=== PATIENT | female | born 1965 | race Caucasian/White ===

== ENCOUNTER → 2017-10-08 | Outpatient (CLI) | payer OTHER | LOC: CFH 09:04 | PROVIDERS: ATTEND Family Medicine | DX: Z12.31 Encounter for screening mammogram for malignant neoplasm of breast (principal) | CPT/HCPCS: 77067 ==

== ENCOUNTER 2020-10-15 14:37 | Inpatient (IN) | payer OTHER ==
[~2020-10-15] VITALS: Ht 160 cm; Wt 73.3 kg
[2020-10-15] MEDS ORDERED: METOCLOPRAMIDE 5 MG/ML, 2ML ONE (15:24)
[2020-10-15] MEDS ORDERED: KETOROLAC 30 MG/1 ML ONE (15:24)
[2020-10-15] MEDS ORDERED: DIPHENHYDRAMINE 50 MG/ML, 1ML ONE (15:24)
[2020-10-15] MEDS ORDERED: SODIUM CHLORIDE 0.9% 1,000ML IVBOLUS ONE (15:30)
[2020-10-15] MEDS ORDERED: METOCLOPRAMIDE 5 MG/ML, 2ML IVPush ONE (15:30)
[2020-10-15] MEDS ORDERED: DIPHENHYDRAMINE 50 MG/ML, 1ML IVPush ONE (15:30)
[2020-10-15] MEDS ORDERED: KETOROLAC 30 MG/1 ML IVPush ONE (15:30)
[2020-10-15 15:31] LABS: MEAN CORPUSCULAR HEMOGLOBIN 30.3 pg (27.0-34.8); MEAN CORPUSCULAR HGB CONC 35.1 g/dL (32.4-35.8); PLATELET COUNT 495 x10^3/uL (130-400); RED BLOOD COUNT 4.22 x10^6/uL (3.82-5.3); RED CELL DISTRIBUTION WIDTH 12.6 % (9.6-15.2)
--- NOTE | 2020-10-15 15:34 | NUR ---
PIV PLACED, MEDS ADMIN PER AUG, IVF RUNNING. XRAY COMPLETE. LABS COLLECTED BY DETECTIVE SERGEANT. PT CONNECTED TO MONITORING. CALL LIGHT IN REACH. SPOUSE AT BEDSIDE.
[2020-10-15 15:36] LABS: ALBUMIN 3.6 g/dL (3.4-5.0); ANION GAP 9 mmol/L (5-15); CALCIUM 9.1 mg/dL (8.5-10.1); CHLORIDE 108 mmol/L (98-107)
[2020-10-15 15:50] LABS: CREATININE 3.87 mg/dL (0.55-1.02); TROPONIN I < 0.015 ng/mL (0.000-0.045)
[2020-10-15 16:04] LABS: MD YES
[2020-10-15 16:07] LABS: <PLATELET ESTIMATE> INCREASED; <PLT MORPHOLOGY> NORMAL PLT MORPH; BASOS#(MANUAL) 0.06 x10^3/uL (0-0.1); BASOS% (MANUAL) 1 % (0-1); LYMPH#(MANUAL) 1.71 x10^3/uL (1-3.4); LYMPHS% (MANUAL) 30 % (22-44); MONOS#(MANUAL) 0.51 x10^3/uL (0.3-2.7); MONOS% (MANUAL) 9 % (2-9); SEG#(MANUAL) 3.42 x10^3/uL (1.8-6.8); SEGS% (MANUAL) 60 % (42-75)
[2020-10-15 16:08] LABS: ANISOCYTOSIS 1+; MICROCYTOSIS 1+
--- NOTE | 2020-10-15 16:22 | NUR ---
ERPA AT BEDSIDE TO UPDATE PT ON POC.
--- NOTE | 2020-10-15 16:45 | NUR ---
2ND LITER IVF RUNNING PER MAR. PT STATES HER HERNANDEZ IS BETTER AFTER MEDS.
[2020-10-15] MEDS ORDERED: POTASSIUM CHLORIDE 20 MEQ TAB.ER.PRT PO ONE (17:00)
[2020-10-15] MEDS ORDERED: SODIUM CHLORIDE 0.9% 1,000 ML IV ONE (17:00)
--- NOTE | 2020-10-15 17:43 | NUR ---
COVID SWAB COLLECTED AND TAKEN TO LAB. HOSPITALIST AT BEDSIDE.
--- NOTE | 2020-10-15 17:53 | NUR ---
REPORT GIVEN TO MIGUEL RN, PT RTG TO ROOM [id number]
[2020-10-15] MEDS ORDERED: ONDANSETRON 2MG/ML, 2ML IVPush PRN (18:30)
[2020-10-15] MEDS ORDERED: ACETAMINOPHEN 325 MG TABLET PO PRN (18:30)
[2020-10-15] MEDS ORDERED: PHARMACY MAY ADJ FOR RENAL FX MC PRN (18:30)
[2020-10-15 20:22] VITALS: BP 138/81
[2020-10-15] MEDS: ASCORBIC ACID 500 MG TABLET PO SCH (20:29)
[2020-10-15] MEDS: SODIUM CHLORIDE 0.9% 1,000 ML IV SCH (20:30)
[2020-10-15] MEDS: HEPARIN 5,000 UNITS/ML, 1ML SQ SCH (20:30)
[2020-10-15 23:49] LABS: MICROSCOPIC NOT IND
[2020-10-16 01:24] VITALS: BP 118/73
[2020-10-16] MEDS: SODIUM CHLORIDE 0.9% 1,000 ML IV SCH ×2 (03:43→12:54)
[2020-10-16] MEDS: HEPARIN 5,000 UNITS/ML, 1ML SQ SCH ×3 (04:41→21:25)
[2020-10-16 05:59] LABS: HCT (SEDRATE) 32.6 % (34.6-47.8)
[2020-10-16 06:06] LABS: BASOPHILS % (AUTO) 1 % (0-1); EOSINOPHILS % (AUTO) 1 % (1-7); LYMPHOCYTES % (AUTO) 40 % (22-44); MEAN CORPUSCULAR HEMOGLOBIN 30.8 pg (27.0-34.8); MEAN PLATELET VOLUME 8.6 fL (7.4-10.4); MONOCYTES % (AUTO) 12 % (2-9); NEUTROPHILS % (AUTO) 47 % (42-75); PLATELET COUNT 419 x10^3/uL (130-400); RED BLOOD COUNT 3.75 x10^6/uL (3.82-5.3); RED CELL DISTRIBUTION WIDTH 12.6 % (9.6-15.2)
[2020-10-16 06:11] LABS: MD NO
[2020-10-16 06:12] LABS: CHLORIDE 109 mmol/L (98-107)
[2020-10-16 06:28] LABS: ALANINE AMINOTRANSFERASE 38 U/L (12-78); ALKALINE PHOSPHATASE 71 U/L (45-117); ANION GAP 9 mmol/L (5-15); BILIRUBIN,TOTAL 0.5 mg/dL (0.2-1.0); C-REACTIVE PROTEIN, QUANT 0.41 mg/dL (0.02-0.49); CHOLESTEROL, TOTAL 167 mg/dL (140-239); CREATININE 2.89 mg/dL (0.55-1.02); HDL CHOL % 17 % (28-40); HDL CHOLESTEROL (DIRECT) 28 mg/dL (40-60); LDL CHOLESTEROL,CALCULATED 82 mg/dL (54-169); LDL/HDL RATIO 2.9 (0.5-3.0); TOTAL PROTEIN 6.4 g/dL (6.4-8.2); TRIGLYCERIDES 287 mg/dL (50-200); VLDL CHOLESTEROL 57 mg/dL (0-25)
[2020-10-16 07:20] VITALS: BP 130/80
[2020-10-16] MEDS: ASCORBIC ACID 500 MG TABLET PO SCH ×2 (08:37→21:25)
[2020-10-16] MEDS: ZINC SULFATE 220 MG CAPSULE PO SCH (08:37)
[2020-10-16 10:21] LABS: GLUCOSE, CSF 46 mg/dL (40-80); TOTAL PROTEIN,CSF 36 mg/dL (15-45)
[2020-10-16 12:53] VITALS: BP 119/71
[2020-10-16] MEDS ORDERED: POTASSIUM CHLORIDE 20 MEQ TAB.ER.PRT PO ONE (13:30)
[2020-10-16] MEDS: NS + 20MEQ KCL 1,000 ML IV SCH ×3 (15:28→23:40)
[2020-10-16 20:00] VITALS: BP 136/85
[2020-10-17 01:00] VITALS: BP 134/78
[2020-10-17] MEDS: HEPARIN 5,000 UNITS/ML, 1ML SQ SCH ×3 (04:22→20:24)
[2020-10-17] MEDS: NS + 20MEQ KCL 1,000 ML IV SCH (05:11)
[2020-10-17 06:46] VITALS: BP 118/88
[2020-10-17] MEDS: ZINC SULFATE 220 MG CAPSULE PO SCH (08:36)
[2020-10-17] MEDS: ASCORBIC ACID 500 MG TABLET PO SCH ×2 (08:36→20:24)
[2020-10-17] MEDS: SODIUM CHLORIDE 0.9% 1,000 ML IV SCH ×2 (08:51→22:40)
[2020-10-17] MEDS ORDERED: SODIUM CHLORIDE 0.9% 1,000 ML IV SCH (09:00)
[2020-10-17 09:22] LABS: ANION GAP 7 mmol/L (5-15); C-REACTIVE PROTEIN, QUANT 0.35 mg/dL (0.02-0.49); CALCIUM 8.4 mg/dL (8.5-10.1); CHLORIDE 112 mmol/L (98-107); CREATININE 1.59 mg/dL (0.55-1.02)
[2020-10-17 09:25] LABS: HCT (SEDRATE) 30.8 % (34.6-47.8)
[2020-10-17 09:32] LABS: BASOPHILS % (AUTO) 1 % (0-1); EOSINOPHILS % (AUTO) 0 % (1-7); LYMPHOCYTES % (AUTO) 26 % (22-44); MEAN CORPUSCULAR HEMOGLOBIN 30.6 pg (27.0-34.8); MEAN PLATELET VOLUME 8.6 fL (7.4-10.4); MONOCYTES % (AUTO) 7 % (2-9); NEUTROPHILS % (AUTO) 66 % (42-75); PLATELET COUNT 362 x10^3/uL (130-400); RED BLOOD COUNT 3.52 x10^6/uL (3.82-5.3); RED CELL DISTRIBUTION WIDTH 12.5 % (9.6-15.2)
[2020-10-17 09:39] LABS: MD NO
[2020-10-17 09:58] LABS: D-DIMER 0.4 ug/mlFEU (0.00-0.52)
[2020-10-17 10:02] LABS: INTERNATIONAL NORMALIZED RATIO 1.07 (0.93-1.1); PROTHROMBIN TIME 11.4 Seconds (9.6-11.5)
[2020-10-17] MEDS ORDERED: POTASSIUM CHLORIDE 20 MEQ TAB.ER.PRT ONE (11:53)
[2020-10-17] MEDS ORDERED: POTASSIUM CHLORIDE 20 MEQ TAB.ER.PRT PO ONE ×3 (12:00→15:00)
[2020-10-17 12:11] VITALS: BP 142/92
[2020-10-17] MEDS ORDERED: MAGNESIUM SULFATE 4 GM in SODIUM CHLORIDE 0.9% 100 ML IV ONE (13:00)
[2020-10-17] MEDS ORDERED: MAGNESIUM SULFATE PMX 4GM/100M 100 ML IVPB ONE (13:30)
[2020-10-17] MEDS: ACETAMINOPHEN 325 MG TABLET PO PRN (14:11)
[2020-10-17] MEDS ORDERED: TRIA1TAB3 PO (14:58)
[2020-10-17] MEDS ORDERED: LOSA100T14 PO (14:58)
[2020-10-17] MEDS ORDERED: PROP40TA PO (14:58)
[2020-10-17] MEDS ORDERED: PHEN37.5 PO (14:58)
[2020-10-17 19:42] VITALS: BP 151/89
[2020-10-17] MEDS ORDERED: MELATONIN 5 MG TABLET PO PRN (21:00)
[2020-10-17] MEDS ORDERED: DIPHENHYDRAMINE 25 MG CAPSULE PO PRN (23:00)
[2020-10-18 00:56] VITALS: BP 124/74
[2020-10-18] MEDS: ACETAMINOPHEN 325 MG TABLET PO PRN (02:42)
[2020-10-18] MEDS: HEPARIN 5,000 UNITS/ML, 1ML SQ SCH (05:05)
[2020-10-18 05:32] LABS: BASOPHILS % (AUTO) 0 % (0-1); EOSINOPHILS % (AUTO) 1 % (1-7); LYMPHOCYTES % (AUTO) 33 % (22-44); MEAN CORPUSCULAR HEMOGLOBIN 31.4 pg (27.0-34.8); MEAN CORPUSCULAR HGB CONC 36.2 g/dL (32.4-35.8); MEAN PLATELET VOLUME 8.7 fL (7.4-10.4); MONOCYTES % (AUTO) 10 % (2-9); NEUTROPHILS % (AUTO) 56 % (42-75); PLATELET COUNT 380 x10^3/uL (130-400); RED BLOOD COUNT 3.46 x10^6/uL (3.82-5.3); RED CELL DISTRIBUTION WIDTH 12.8 % (9.6-15.2)
[2020-10-18 05:34] LABS: HCT (SEDRATE) 30.4 % (34.6-47.8)
[2020-10-18 05:38] LABS: MD NO
[2020-10-18 05:47] LABS: CHLORIDE 112 mmol/L (98-107)
[2020-10-18 05:51] LABS: ANION GAP 8 mmol/L (5-15); C-REACTIVE PROTEIN, QUANT 0.27 mg/dL (0.02-0.49); CALCIUM 8.1 mg/dL (8.5-10.1); CREATININE 1.23 mg/dL (0.55-1.02)
[2020-10-18 06:44] VITALS: BP 138/84
[2020-10-18] MEDS: ZINC SULFATE 220 MG CAPSULE PO SCH (08:58)
[2020-10-18] MEDS: ASCORBIC ACID 500 MG TABLET PO SCH (08:58)
[2020-10-18] MEDS ORDERED: ASCO500T9 PO (09:20)
[2020-10-18] MEDS ORDERED: MELA5TAB14 PO (09:20)
[2020-10-18] MEDS ORDERED: ZINC220C8 PO (09:20)
== END 2020-10-18 10:28 | disposition home or self-care (01) | DRG 699 ==
LOC: ED 15:48 → EDIP 16:55 → 3N 18:19 → DCLOUNGE 10-18 10:15
PROVIDERS: ADMIT Hospitalist; ATTEND Internal Medicine
PROC: 009U3ZX Drainage of Spinal Canal, Percutaneous Approach, Diagnostic (ICD-10-PCS; principal; 2020-10-16)
PROC: B01B1ZZ Fluoroscopy of Spinal Cord using Low Osmolar Contrast (ICD-10-PCS; 2020-10-16)
DX: N14.4 Toxic nephropathy, not elsewhere classified (principal); D68.2 Hereditary deficiency of other clotting factors; D68.69 Other thrombophilia; N17.9 Acute kidney failure, unspecified; E66.9 Obesity, unspecified; Z68.28 Body mass index [BMI] 28.0-28.9, adult; E78.1 Pure hyperglyceridemia; E83.42 Hypomagnesemia; E86.0 Dehydration; E87.6 Hypokalemia; I12.9 Hypertensive chronic kidney disease with stage 1 through stage 4 chronic kidney disease, or unspecified chronic kidney disease; M17.12 Unilateral primary osteoarthritis, left knee; N18.9 Chronic kidney disease, unspecified; Z20.822 Contact with and (suspected) exposure to COVID-19; T39.395A Adverse effect of other nonsteroidal anti-inflammatory drugs [NSAID], initial encounter; Z79.82 Long term (current) use of aspirin; Z86.16 Personal history of COVID-19; Z83.3 Family history of diabetes mellitus; Z79.899 Other long term (current) drug therapy; D47.3 Essential (hemorrhagic) thrombocythemia; G43.909 Migraine, unspecified, not intractable, without status migrainosus
CPT/HCPCS: 36415; 62328; 71045; 76770; 80048; 80053; 80061; 81003; 82040; 82306; 82550; 82728; 82945; 83615; 83735; 83970; 84100; 84145; 84157; 84443; 84484; 85025; 85379; 85384; 85610; 85651; 86140; 87040; 87070; 87205; 87255; 89051; 93005; 93306; 93356; 96360; G0378; J1644; J1885; J3480; U0005; J1200; J2765; J3475; J7030; Q0163; U0003